=== PATIENT | female | born 1970 | race Caucasian/White ===

== ENCOUNTER 2022-02-22 15:15 | Emergency (ER) | payer SELFPAY ==
[2022-02-22 15:57] LABS: #Eosinphils 0.1 thou/uL (0.0-0.7); #Lymphocytes 1.8 thou/uL (1.20-3.40); #Monocytes 0.4 thou/uL (0.11-0.59); #Neutrophils 3.9 thou/uL (1.40-6.50); %Basophils 0.5 % (0.0-1.0); %Eosinophils 1.7 % (0.0-10.0); %Lymphocytes 28.9 % (21.0-51.0); %Monocytes 6.8 % (0.0-10.0); %Neutrophils 62.1 % (42.0-75.0); INR-International Normal Ratio 0.9; Mean Corpuscular HGB CONC 33.1 g/dL (32.0-36.0); Mean Corpuscular Hemoglobin 30.7 pg (27.0-31.0); Mean Corpuscular Volume 92.9 fL (78.0-98.0); Mean Platelet Volume 9.5 fL (7.4-10.4); PTT 31.7 sec (22.9-36.1); Platelet Count 202 thou/uL (130-400); Prothrombin Time 12.6 sec (12.0-14.7); RBC Distribution Width 11.8 % (11.5-14.5); Red Blood Cell (RBC) Count 3.59 mill/uL (4.20-5.40); White Blood Cell (WBC) Count 6.2 thou/uL (4.8-10.8)
[2022-02-22 16:12] LABS: Bilirubin Negative (Negative); Blood, Urine Negative (Negative); Clarity Clear (Clear); Glucose, Urine (Dipstick) Negative (Negative); Ketone, Urine Negative (Negative); Leukocyte Negative (Negative); Nitrite Negative (Negative); Protein, Urine (Dipstick) Negative (Neg-Trace); Urobilinogen 0.2 mg/dL (Less than 2)
[2022-02-22 16:12] LABS: ALT (SGPT) 27 U/L (8-55); AST (SGOT) 31 U/L (5-34); Albumin 4.2 g/dL (3.5-5.0); Alkaline Phosphatase 52 U/L (40-110); Anion Gap 15 mmol/L (10-20); BUN (Urea Nitrogen) 7 mg/dL (7.0-18.7); Bilirubin, Total 0.4 mg/dL (0.2-1.2); Calc. Creatinine Clearance 0 mL/min (70-130); Calcium 10.6 mg/dL (7.8-10.44); Carbon Dioxide 26 mmol/L (22-29); Chloride 101 mmol/L (98-107); Globulin 2.2 g/dL (2.4-3.5); Glucose 96 mg/dL (70-105); Lipase 5 U/L (8-78); Potassium 3.2 mmol/L (3.5-5.1); Protein, Total 6.4 g/dL (6.0-8.3); Sodium 139 mmol/L (136-145)
[2022-02-22] MEDS ORDERED: Ondansetron ODT 4 MG TAB ONE (16:28)
[2022-02-22] MEDS ORDERED: Lidocaine Viscous Sol 2% 15 ml UD Cup ONE (16:48)
[2022-02-22] MEDS ORDERED: Mag-Al Plus 1200 MG/1200 MG/120 MG/30 ML UDCUP ONE (16:48)
[2022-02-22] MEDS ORDERED: Potassium Chloride 20 MEQ TAB ONE (16:48)
== END 2022-02-22 18:26 | disposition home or self-care (01) ==
LOC: MADERS 15:15
DX: R07.2 Precordial pain (principal); K82.8 Other specified diseases of gallbladder; E87.6 Hypokalemia; N83.201 Unspecified ovarian cyst, right side; N20.1 Calculus of ureter; R60.0 Localized edema; M19.90 Unspecified osteoarthritis, unspecified site; F17.210 Nicotine dependence, cigarettes, uncomplicated
CPT/HCPCS: 71045; 74176; 80053; 81003; 83690; 83880; 84484; 85025; 85379; 85610; 85730; 93005; 94760; Q0162

== ENCOUNTER 2022-10-28 07:45 | Emergency (ER) | payer BC, SELFPAY ==
[~2022-10-28 07:45] MED LIST: Sodium Chloride 0.9% 100 ML BAG ONE
[2022-10-28 08:28] LABS: #Eosinphils 0.1 thou/uL (0.0-0.7); #Lymphocytes 1.6 thou/uL (1.20-3.40); #Monocytes 0.4 thou/uL (0.11-0.59); #Neutrophils 4.2 thou/uL (1.40-6.50); %Basophils 0.7 % (0.0-1.0); %Eosinophils 2.2 % (0.0-10.0); %Lymphocytes 24.9 % (21.0-51.0); %Monocytes 5.6 % (0.0-10.0); %Neutrophils 66.6 % (42.0-75.0); Hemoglobin 13.7 g/dL (12.0-16.0); Mean Corpuscular HGB CONC 33.9 g/dL (32.0-36.0); Mean Corpuscular Hemoglobin 30.8 pg (27.0-31.0); Mean Platelet Volume 8.2 fL (7.4-10.4); Platelet Count 246 10x3/uL (130-400); Red Blood Cell (RBC) Count 4.45 mill/uL (4.20-5.40); White Blood Cell (WBC) Count 6.3 10x3/uL (4.8-10.8)
[2022-10-28 08:38] LABS: Pregnancy Test - Urine (BHCG) Negative (Negative); Pregu Control Background? CLEAR/WHITE (CLR/WHITE); Pregu Control Bar Appear? YES (CONTROL BAR)
[2022-10-28 08:39] LABS: Bilirubin Negative (Negative); Blood, Urine Negative (Negative); Clarity Clear (Clear); Glucose, Urine (Dipstick) Negative (Negative); Ketone, Urine Negative (Negative); Leukocyte Negative (Negative); Nitrite Negative (Negative); Protein, Urine (Dipstick) Negative (Neg-Trace); Urobilinogen 0.2 mg/dL (Less than 2); pH, Urine 6.5 (5.0-9.0)
[2022-10-28 08:46] LABS: ALT (SGPT) 16 U/L (8-55); AST (SGOT) 16 U/L (5-34); Albumin 4.4 g/dL (3.5-5.0); Alkaline Phosphatase 68 U/L (40-110); Anion Gap 15 mmol/L (10-20); BUN (Urea Nitrogen) 13 mg/dL (7.0-18.7); Bilirubin, Total 0.3 mg/dL (0.2-1.2); Calc. Creatinine Clearance 0 mL/min (70-130); Calcium 9.7 mg/dL (7.8-10.44); Carbon Dioxide 21 mmol/L (22-29); Chloride 109 mmol/L (98-107); Estimated GFR 88; Globulin 2.9 g/dL (2.4-3.5); Glucose 90 mg/dL (70-105); Potassium 3.7 mmol/L (3.5-5.1); Protein, Total 7.3 g/dL (6.0-8.3); Sodium 141 mmol/L (136-145)
[2022-10-28] MEDS ORDERED: Sodium Chloride 0.9% 1,000 ML ONE (08:47)
[2022-10-28] MEDS ORDERED: Iopamidol 370 76% 125 ML VIAL FS ONE (08:50)
[2022-10-28 09:11] LABS: Magnesium 1.9 mg/dL (1.6-2.6)
[2022-10-28 09:12] LABS: Thyroid Stimulating Hormone 0.9 uIU/mL (0.35-4.94)
[2022-10-28 16:48] LABS: Free T4 (Free Thyroxine) 1.17 ng/dL (0.70-1.48)
== END 2022-10-28 15:40 | disposition home or self-care (01) ==
LOC: MADERS 07:45
DX: R55 Syncope and collapse (principal); R07.89 Other chest pain; R00.2 Palpitations; F17.210 Nicotine dependence, cigarettes, uncomplicated
CPT/HCPCS: 70450; 70498; 71045; 80053; 81003; 81025; 83735; 83880; 84439; 84443; 84484; 85025; 93005; 96360; J7050; Q9967

== ENCOUNTER 2022-11-25 10:45 | Outpatient (CLI) | payer BC | END 2022-11-25 10:46 | disposition home or self-care (01) | LOC: MADRAD 10:45 | PROVIDERS: ATTEND Registered Nurse | DX: M54.2 Cervicalgia (principal); M47.812 Spondylosis without myelopathy or radiculopathy, cervical region | CPT/HCPCS: 72050 ==